=== PATIENT | male | born 1960 | race African-American/Black ===

== ENCOUNTER 2022-02-28 12:02 | Emergency (ER) | payer OTHER ==
[2022-02-28 12:26] VITALS: BP 113/68; PULSE 94; TEMP 98.4; BMI 35.4
== END 2022-02-28 16:45 | disposition left against medical advice (07) ==
LOC: JER 12:02
DX: R00.2 Palpitations (principal); R07.9 Chest pain, unspecified
CPT/HCPCS: 93005; 93010; 99281-25

== ENCOUNTER 2022-07-27 01:25 | Emergency (ER) | payer OTHER | END 2022-07-27 06:40 | disposition home or self-care (01) | LOC: JER 01:25 | DX: H10.31 Unspecified acute conjunctivitis, right eye (principal); S30.812A Abrasion of penis, initial encounter; Y99.9 Unspecified external cause status | CPT/HCPCS: 36415; 87491; 87591; 99284-25 ==

== ENCOUNTER 2022-10-10 15:52 | Emergency (ER) | payer OTHER ==
[2022-10-10 16:15] VITALS: BP 104/68; PULSE 90; RESP 18; TEMP 98.8; BMI 36.5
== END 2022-10-10 16:35 | disposition left against medical advice (07) ==
LOC: JERFT 15:52
DX: Z20.2 Contact with and (suspected) exposure to infections with a predominantly sexual mode of transmission (principal)
CPT/HCPCS: 99281-25

== ENCOUNTER 2022-10-25 10:04 | Emergency (ER) | payer OTHER ==
[2022-10-25 10:25] VITALS: RESP 20; TEMP 99.5; BMI 36.5
[2022-10-25] MEDS ORDERED: SODIUM CHLORIDE 1,000 ML IV STA (11:40)
[2022-10-25] MEDS ORDERED: ACETAMINOPHEN 1000 MG/100 ML BAG IVPB ONE (11:40)
[2022-10-25] MEDS ORDERED: ONDANSETRON 4 MG/2 ML VIAL IVPUSH ONE (11:41)
[2022-10-25] MEDS ORDERED: ONDANSETRON 4 MG/2 ML VIAL ONE (11:46)
[2022-10-25] MEDS ORDERED: ACETAMINOPHEN INJECTION 100 ML IVPB ONE (11:46)
[2022-10-25 12:24] LABS: BASO % 0.5 % (0-2.0); EOS % 0.4 % (0-4.5); HEMATOCRIT 40.2 % (35.4-49); HEMOGLOBIN 13.4 GM/dL (11.7-16.9); LYMPH % 10.5 % (8-40); MCH 29.7 pg (25.7-33.7); MCHC 33.2 g/dl (32.0-35.9); MEAN CELL VOLUME 89.4 fl (80-96); MEAN PLT VOLUME 7.4 fl (7.5-11.1); MONO % 5.3 % (3.8-10.2); NEUT % 83.3 % (42.8-82.8); PLATELET COUNT 255 10^3/uL (134-434); RDW 13.4 % (11.9-15.9); WHITE BLOOD COUNT 5.1 K/mm3 (4.0-10.0)
[2022-10-25 13:06] LABS: CALCIUM 8.5 mg/dL (8.5-10.1)
[2022-10-25 13:07] LABS: ALBUMIN 3.6 g/dl (3.4-5.0); BLOOD UREA NITROGEN 18.1 mg/dL (7-18); MAGNESIUM 1.8 mg/dL (1.8-2.4)
[2022-10-25 13:10] LABS: CREATININE 0.9 mg/dL (0.55-1.3)
[2022-10-25 13:11] LABS: TOT PROT 6.8 g/dl (6.4-8.2)
[2022-10-25 13:12] LABS: BILIRUBIN,TOTAL 0.8 mg/dL (0.2-1)
[2022-10-25 13:50] LABS: EPI CELLS 24 /uL (0-25.1); HYALINE CASTS 7 /uL (0-3.1); URINE APPEARANCE CLOUDY; URINE BILIRUBIN NEGATIVE (NEGATIVE); URINE COLOR YELLOW; URINE GLUCOSE (UA) NEGATIVE (NEGATIVE); URINE KETONE TRACE (NEGATIVE); URINE NITRITE POSITIVE (NEGATIVE); URINE PROTEIN 1+ (NEGATIVE); URINE RBC 10 /uL (0-23.9); URINE WBC 121 /uL (0-25.8)
[2022-10-25 14:00] LABS: URINE BACTERIA MANY PRESENT /uL (0-1359)
[2022-10-25 14:01] LABS: URINE LEUK ESTERASE MODERATE (NEGATIVE)
[2022-10-25] MEDS ORDERED: CEFTRIAXONE 1,000 MG in DEXTROSE 5%-WATER - 50 ML IVPB ONE (14:23)
[2022-10-25] MEDS ORDERED: CEFTRIAXONE 1 GM/50 ML BAG ONE (14:32)
[2022-10-25 17:02] VITALS: BP 146/91; PULSE 83
== END 2022-10-25 17:28 | disposition home or self-care (01) ==
LOC: JER 10:04
PROC: 3E0333Z Introduction of Anti-inflammatory into Peripheral Vein, Percutaneous Approach (ICD-10-PCS; principal; 2022-10-25)
PROC: 3E03329 Introduction of Other Anti-infective into Peripheral Vein, Percutaneous Approach (ICD-10-PCS; 2022-10-25)
PROC: 3E033NZ Introduction of Analgesics, Hypnotics, Sedatives into Peripheral Vein, Percutaneous Approach (ICD-10-PCS; 2022-10-25)
PROC: 3E033GC Introduction of Other Therapeutic Substance into Peripheral Vein, Percutaneous Approach (ICD-10-PCS; 2022-10-25)
PROC: 3E0337Z Introduction of Electrolytic and Water Balance Substance into Peripheral Vein, Percutaneous Approach (ICD-10-PCS; 2022-10-25)
PROC: 3E0233Z Introduction of Anti-inflammatory into Muscle, Percutaneous Approach (ICD-10-PCS; 2022-10-25)
PROC: 3E023GC Introduction of Other Therapeutic Substance into Muscle, Percutaneous Approach (ICD-10-PCS; 2022-10-25)
DX: N39.0 Urinary tract infection, site not specified (principal); R11.10 Vomiting, unspecified; R19.7 Diarrhea, unspecified; R10.9 Unspecified abdominal pain
CPT/HCPCS: 0241U-QW; 36415; 71046-TC-FY; 74176-TC; 80053; 81003; 83690; 83735; 84484; 85025; 87086; 87186; 93005; 93010; 99285-25

== ENCOUNTER 2023-02-27 11:40 | Emergency (ER) | payer OTHER ==
[2023-02-27 12:05] VITALS: BP 128/86; PULSE 96; RESP 18; TEMP 98; BMI 34.0
[2023-02-27] MEDS ORDERED: AMOX TR/POT CLAV 875MG/125MG TABLETS (FP) PO ONE (13:31)
[2023-02-27] MEDS ORDERED: AMOX TR/POT CLAV 875MG/125MG TABLETS (FP) ONE (14:27)
== END 2023-02-27 16:00 | disposition home or self-care (01) ==
LOC: JERFT 11:40
DX: M79.662 Pain in left lower leg (principal); S92.912A Unspecified fracture of left toe(s), initial encounter for closed fracture; S81.812A Laceration without foreign body, left lower leg, initial encounter; S81.811A Laceration without foreign body, right lower leg, initial encounter; R07.81 Pleurodynia; V23.41XA Electric (assisted) bicycle driver injured in collision with car, pick-up truck or van in traffic accident, initial encounter; Y93.55 Activity, bike riding; Y92.219 Unspecified school as the place of occurrence of the external cause
CPT/HCPCS: 71101-TC-LT-FY; 73590-TC-LT-FY; 73610-TC-LT-FY; 73630-TC-LT; 99284-25

== ENCOUNTER 2023-02-28 10:49 | Emergency (ER) | payer OTHER ==
[2023-02-28 10:59] VITALS: BP 99/54; PULSE 95; RESP 18; TEMP 98.7; BMI 34.0
== END 2023-02-28 13:46 | disposition home or self-care (01) ==
LOC: JERFT 10:49
DX: Z76.0 Encounter for issue of repeat prescription (principal)
CPT/HCPCS: 99281-25

== ENCOUNTER 2023-03-04 13:47 | Inpatient (IN) | payer OTHER ==
[2023-03-04 13:56] VITALS: BMI 34.0
[2023-03-04] MEDS ORDERED: ACETAMINOPHEN 1000 MG/100 ML BAG IVPB ONE (15:08)
[2023-03-04 15:45] LABS: BASO % 0.3 % (0-2.0); EOS % 2.3 % (0-4.5); HEMATOCRIT 32.8 % (35.4-49); LYMPH % 23.6 % (8-40); MCH 29.3 pg (25.7-33.7); MCHC 33.5 g/dl (32.0-35.9); MEAN CELL VOLUME 87.3 fl (80-96); MEAN PLT VOLUME 7.6 fl (7.5-11.1); MONO % 6.5 % (3.8-10.2); NEUT % 67.3 % (42.8-82.8); PLATELET COUNT 290 10^3/uL (134-434); RBC 3.75 M/mm3 (4.00-5.60); RDW 13.5 % (11.9-15.9); WHITE BLOOD COUNT 6.5 K/mm3 (4.0-10.0)
[2023-03-04] MEDS ORDERED: ACETAMINOPHEN INJECTION 100 ML IVPB ONE (16:08)
[2023-03-04 16:10] LABS: POTASSIUM 3.7 mmol/L (3.5-5.1)
[2023-03-04 16:13] LABS: BLOOD UREA NITROGEN 17.9 mg/dL (7-18); CALCIUM 8.6 mg/dL (8.5-10.1)
[2023-03-04] MEDS ORDERED: VANCOMYCIN/WATER 2 GM/400 ML PREMIX BAG (RESTRICTED TO ID ONLY) IVPB ONE (16:15)
[2023-03-04 16:16] LABS: CREATININE 0.8 mg/dL (0.55-1.3)
[2023-03-04 16:18] LABS: BILIRUBIN,TOTAL 0.9 mg/dL (0.2-1); TOT PROT 6.3 g/dl (6.4-8.2)
[2023-03-04] MEDS ORDERED: VANCOMYCIN/WATER FOR INJ (PEG) 1,000 MG/200 ML BAG IVPB ONE (16:55)
[2023-03-04] MEDS ORDERED: KETOROLAC TROMETHAMINE 15 MG/ML VIAL IVPUSH PRN (17:33)
[2023-03-04] MEDS ORDERED: ACETAMINOPHEN 325 MG TABLET (FP) PO PRN (17:33)
[2023-03-04] MEDS ORDERED: LACTATED RINGERS SOLUTION 1,000 ML IV SCH (17:45)
[2023-03-04] MEDS ORDERED: ACETAMINOPHEN 325 MG TABLET (FP) ONE ×2 (20:23→23:16)
[2023-03-05] MEDS ORDERED: VANCOMYCIN 1 GM/200 ML PREMIX BAG (RESTRICTED TO ID ONLY) IVPB SCH (05:00)
[2023-03-05] MEDS ORDERED: VANCOMYCIN/WATER FOR INJ (PEG) 1,000 MG/200 ML BAG IVPB SCH (05:00)
[2023-03-05] MEDS ORDERED: PIPERACILLIN/TAZOB 3.375 GM 3.375 GM in DEXTROSE 5%-WATER - 50 ML IVPB ONE (08:02)
[2023-03-05] MEDS ORDERED: oxyCODONE HCL 5 MG TABLET PO PRN ×2 (08:44→08:50)
[2023-03-05] MEDS ORDERED: KETOROLAC TROMETHAMINE 30 MG/1 ML VIAL IVPUSH PRN ×2 (08:45→08:50)
[2023-03-05] MEDS ORDERED: ACETAMINOPHEN 500 MG TABLET (FP) PO PRN (08:51)
[2023-03-05] MEDS: BACITRACIN ZINC 15 GM TUBE TOPICAL OINTMENT TP SCH ×2 (10:27→23:05)
[2023-03-05] MEDS: ENOXAPARIN NA (PORCINE) 40 MG/0.4 ML DISP.SYRIN SQ SCH (10:29)
[2023-03-05 10:45] LABS: INR 1.08 (0.83-1.09); PROTHROMBIN TIME (PATIENT) 12.5 SEC (9.7-13.0)
[2023-03-05 10:47] LABS: ACTIVATED PTT 31.9 SECONDS (25.2-36.5)
[2023-03-05 10:50] LABS: BASO % 0.5 % (0-2.0); EOS % 2.8 % (0-4.5); HEMATOCRIT 30.9 % (35.4-49); HEMOGLOBIN 10.4 GM/dL (11.7-16.9); LYMPH % 33.1 % (8-40); MCH 29.3 pg (25.7-33.7); MCHC 33.6 g/dl (32.0-35.9); MEAN CELL VOLUME 87.3 fl (80-96); MEAN PLT VOLUME 7.5 fl (7.5-11.1); MONO % 5.3 % (3.8-10.2); NEUT % 58.3 % (42.8-82.8); PLATELET COUNT 284 10^3/uL (134-434); RBC 3.54 M/mm3 (4.00-5.60); RDW 13.6 % (11.9-15.9); WHITE BLOOD COUNT 5.8 K/mm3 (4.0-10.0)
[2023-03-05 10:58] LABS: POTASSIUM 3.9 mmol/L (3.5-5.1)
[2023-03-05 11:04] LABS: CALCIUM 8.6 mg/dL (8.5-10.1)
[2023-03-05 11:05] LABS: ALBUMIN 2.8 g/dl (3.4-5.0); BLOOD UREA NITROGEN 13.5 mg/dL (7-18); MAGNESIUM 1.8 mg/dL (1.8-2.4)
[2023-03-05 11:07] LABS: CREATININE 0.8 mg/dL (0.55-1.3); PHOSPHOROUS 2.8 mg/dL (2.5-4.9)
[2023-03-05 11:09] LABS: BILIRUBIN,TOTAL 0.6 mg/dL (0.2-1); TOT PROT 5.9 g/dl (6.4-8.2)
[2023-03-05] MEDS: VANCOMYCIN 1 GM/200 ML PREMIX BAG (RESTRICTED TO ID ONLY) IVPB SCH ×3 (13:17→18:10)
[2023-03-05] MEDS: CEFTRIAXONE 1 GM in DEXTROSE 5%-WATER - 50 ML IVPB SCH (16:48)
[2023-03-05] MEDS: DOCUSATE SODIUM 100 MG CAPSULE (FP) PO SCH (23:07)
[2023-03-06] MEDS: VANCOMYCIN 1 GM/200 ML PREMIX BAG (RESTRICTED TO ID ONLY) IVPB SCH (06:50)
[2023-03-06] MEDS: PIPERACILLIN/TAZOB 3.375 GM 3.375 GM in DEXTROSE 5%-WATER - 50 ML IVPB SCH ×2 (10:30→17:13)
[2023-03-06] MEDS: DOXYCYCLINE HYCLATE 100 MG CAPSULE PO SCH ×2 (10:30→17:13)
[2023-03-06] MEDS: BACITRACIN ZINC 15 GM TUBE TOPICAL OINTMENT TP SCH ×2 (10:30→22:52)
[2023-03-06] MEDS: ENOXAPARIN NA (PORCINE) 40 MG/0.4 ML DISP.SYRIN SQ SCH (10:30)
[2023-03-06] MEDS: CEFTRIAXONE 1 GM in DEXTROSE 5%-WATER - 50 ML IVPB SCH (12:13)
[2023-03-06] MEDS: oxyCODONE HCL 5 MG TABLET PO PRN ×2 (15:31→22:51)
[2023-03-06] MEDS ORDERED: DOXYCYCLINE HYCLATE 100 MG CAPSULE PO SCH (18:00)
[2023-03-06] MEDS: DOCUSATE SODIUM 100 MG CAPSULE (FP) PO SCH (22:48)
[2023-03-07] MEDS: PIPERACILLIN/TAZOB 3.375 GM 3.375 GM in DEXTROSE 5%-WATER - 50 ML IVPB SCH ×2 (02:03→02:10)
[2023-03-07 09:15] LABS: BASO % 0.4 % (0-2.0); EOS % 2.9 % (0-4.5); HEMOGLOBIN 11.7 GM/dL (11.7-16.9); LYMPH % 33.2 % (8-40); MCH 29.8 pg (25.7-33.7); MCHC 34.2 g/dl (32.0-35.9); MEAN CELL VOLUME 87.1 fl (80-96); MEAN PLT VOLUME 7.8 fl (7.5-11.1); MONO % 6.6 % (3.8-10.2); NEUT % 56.9 % (42.8-82.8); PLATELET COUNT 356 10^3/uL (134-434); RBC 3.91 M/mm3 (4.00-5.60); RDW 13.2 % (11.9-15.9); WHITE BLOOD COUNT 7.3 K/mm3 (4.0-10.0)
[2023-03-07] MEDS ORDERED: AMOX TR/POT CLAV 875MG/125MG TABLETS (FP) PO SCH (09:30)
[2023-03-07] MEDS: ENOXAPARIN NA (PORCINE) 40 MG/0.4 ML DISP.SYRIN SQ SCH (09:32)
[2023-03-07] MEDS: BACITRACIN ZINC 15 GM TUBE TOPICAL OINTMENT TP SCH (09:32)
[2023-03-07] MEDS: DOXYCYCLINE HYCLATE 100 MG CAPSULE PO SCH (09:32)
[2023-03-07 09:36] LABS: CALCIUM 9.1 mg/dL (8.5-10.1); POTASSIUM 4.1 mmol/L (3.5-5.1)
[2023-03-07 09:37] LABS: BLOOD UREA NITROGEN 18.6 mg/dL (7-18); MAGNESIUM 2.1 mg/dL (1.8-2.4)
[2023-03-07 09:40] LABS: CREATININE 0.9 mg/dL (0.55-1.3)
[2023-03-07 09:42] LABS: BILIRUBIN,TOTAL 0.5 mg/dL (0.2-1); TOT PROT 6.9 g/dl (6.4-8.2)
[2023-03-07 09:47] LABS: ALBUMIN 3.5 g/dl (3.4-5.0)
[2023-03-07 12:18] VITALS: BP 135/89; PULSE 82; RESP 18; TEMP 98.1
== END 2023-03-07 12:31 | disposition home or self-care (01) | DRG 383 ==
LOC: JER 13:47 → JERBED 17:26 → J8W 03-05 00:46
PROVIDERS: ADMIT Internal Medicine; ATTEND Nurse Practitioner Family
DX: L03.116 Cellulitis of left lower limb (principal); E66.9 Obesity, unspecified; Z68.34 Body mass index [BMI] 34.0-34.9, adult; B35.1 Tinea unguium
CPT/HCPCS: 0241U-QW; 36415; 71045-TC-FY; 73590-TC-LT-FY; 73610-TC-LT-FY; 73630-TC-LT; 80053; 83735; 84100; 84484; 85025; 85610; 85730; 87040; 93005; 93010; 93971-TC; 99285-25

== ENCOUNTER 2023-04-25 18:03 | Inpatient (IN) | payer OTHER ==
[2023-04-25 18:10] VITALS: BMI 34.0
[2023-04-25] MEDS ORDERED: ACETAMINOPHEN 1000 MG/100 ML BAG IVPB ONE (19:39)
[2023-04-25] MEDS ORDERED: PIPERACILLIN/TAZOB 4.5 GM 4.5 GM in DEXTROSE 5%-WATER 100 ML IVPB ONE (19:45)
[2023-04-25] MEDS ORDERED: VANCOMYCIN 1 GM in D5W (PRE-DOCKED) 1,000 MG/250 ML (RESTRICTED TO ID ONLY IVPB ONE (19:45)
[2023-04-25] MEDS ORDERED: ACETAMINOPHEN INJECTION 100 ML IVPB ONE (19:51)
[2023-04-25] MEDS ORDERED: PIPERACILLIN/TAZOB 3.375 GM 3.375 GM/50 ML BAG IVPB ONE (19:51)
[2023-04-25] MEDS ORDERED: VANCOMYCIN/WATER FOR INJ (PEG) 1,000 MG/200 ML BAG IVPB ONE (19:51)
[2023-04-25] MEDS ORDERED: PIPERACILLIN/TAZOB 4.5 GM 4.5 GM/100 ML BAG IVPB ONE (19:52)
[2023-04-25 20:50] LABS: BASO % 0.5 % (0-2.0); EOS % 2.7 % (0-4.5); HEMATOCRIT 30.7 % (35.4-49); HEMOGLOBIN 10.2 GM/dL (11.7-16.9); LYMPH % 38.9 % (8-40); MCH 29.2 pg (25.7-33.7); MCHC 33.1 g/dl (32.0-35.9); MEAN CELL VOLUME 88.2 fl (80-96); MEAN PLT VOLUME 7.8 fl (7.5-11.1); MONO % 7.1 % (3.8-10.2); NEUT % 50.8 % (42.8-82.8); PLATELET COUNT 249 10^3/uL (134-434); RBC 3.48 M/mm3 (4.00-5.60); RDW 13.6 % (11.9-15.9); WHITE BLOOD COUNT 5.6 K/mm3 (4.0-10.0)
[2023-04-25 21:14] LABS: POTASSIUM 3.4 mmol/L (3.5-5.1)
[2023-04-25 21:18] LABS: ALBUMIN 3.4 g/dl (3.4-5.0)
[2023-04-25 21:19] LABS: BLOOD UREA NITROGEN 23.2 mg/dL (7-18)
[2023-04-25 21:21] LABS: CREATININE 1.1 mg/dL (0.55-1.3)
[2023-04-25 21:23] LABS: BILIRUBIN,TOTAL 0.3 mg/dL (0.2-1); TOT PROT 6.3 g/dl (6.4-8.2)
[2023-04-25 21:25] LABS: ERYTHROCYTE SEDIMENTATION RATE 21 mm/hr (0-20)
[2023-04-25] MEDS ORDERED: ALBUTEROL SO4 HFA INHALER IH PRN (23:55)
[2023-04-26] MEDS: PIPERACILLIN/TAZOB 3.375 GM 3.375 GM in DEXTROSE 5%-WATER - 50 ML IVPB SCH ×4 (03:30→22:42)
[2023-04-26] MEDS ORDERED: PIPERACILLIN/TAZOB 3.375 GM 3.375 GM/50 ML BAG IVPB ONE ×4 (03:31→14:50)
[2023-04-26 06:16] LABS: HEMATOCRIT 35.6 % (35.4-49); HEMOGLOBIN 11.7 GM/dL (11.7-16.9); MCH 29.3 pg (25.7-33.7); MCHC 32.9 g/dl (32.0-35.9); MEAN CELL VOLUME 88.9 fl (80-96); MEAN PLT VOLUME 7.7 fl (7.5-11.1); PLATELET COUNT 272 10^3/uL (134-434); RBC 4.01 M/mm3 (4.00-5.60); RDW 13.7 % (11.9-15.9); WHITE BLOOD COUNT 5.4 K/mm3 (4.0-10.0)
[2023-04-26 06:39] LABS: POTASSIUM 3.5 mmol/L (3.5-5.1)
[2023-04-26] MEDS: INSULIN SLIDING SCALE (NOVOLOG) 1 VIAL SQ SCH ×4 (06:39→22:42)
[2023-04-26 06:41] LABS: ALBUMIN 3.7 g/dl (3.4-5.0); BLOOD UREA NITROGEN 18.9 mg/dL (7-18); CALCIUM 9.1 mg/dL (8.5-10.1); MAGNESIUM 2.1 mg/dL (1.8-2.4)
[2023-04-26 06:45] LABS: PHOSPHOROUS 3.4 mg/dL (2.5-4.9)
[2023-04-26 06:46] LABS: BILIRUBIN,TOTAL 0.5 mg/dL (0.2-1); TOT PROT 6.9 g/dl (6.4-8.2)
[2023-04-26] MEDS ORDERED: HYDROCHLOROTHIAZIDE 25 MG TABLET (FP) ONE (09:49)
[2023-04-26] MEDS ORDERED: NICOTINE 7 MG/24 HOURS TOPICAL PATCH TD ONE (09:50)
[2023-04-26] MEDS ORDERED: ENOXAPARIN NA (PORCINE) 60 MG/0.6 ML DISP.SYRIN SQ ONE (09:53)
[2023-04-26] MEDS ORDERED: ENOXAPARIN NA (PORCINE) 40 MG/0.4 ML DISP.SYRIN SQ SCH (10:00)
[2023-04-26] MEDS ORDERED: VANCOMYCIN 1 GM in D5W (PRE-DOCKED) 1,000 MG/250 ML (RESTRICTED TO ID ONLY IVPB SCH (10:00)
[2023-04-26] MEDS: NICOTINE 7 MG/24 HOURS TOPICAL PATCH TD SCH (10:20)
[2023-04-26] MEDS: ENOXAPARIN NA (PORCINE) 120 MG/0.8 ML DISP.SYRIN SQ SCH ×2 (10:20→22:42)
[2023-04-26] MEDS ORDERED: VANCOMYCIN/WATER FOR INJ (PEG) 1,000 MG/200 ML BAG IVPB ONE (10:39)
[2023-04-26] MEDS: HYDROCHLOROTHIAZIDE 25 MG TABLET (FP) PO SCH (10:49)
[2023-04-27] MEDS: PIPERACILLIN/TAZOB 3.375 GM 3.375 GM in DEXTROSE 5%-WATER - 50 ML IVPB SCH ×4 (02:59→21:27)
[2023-04-27 08:42] LABS: BASO % 0.7 % (0-2.0); EOS % 2.8 % (0-4.5); HEMATOCRIT 37.2 % (35.4-49); HEMOGLOBIN 12.3 GM/dL (11.7-16.9); LYMPH % 41.6 % (8-40); MCH 29.2 pg (25.7-33.7); MCHC 33.1 g/dl (32.0-35.9); MEAN CELL VOLUME 88.1 fl (80-96); MONO % 5.9 % (3.8-10.2); PLATELET COUNT 295 10^3/uL (134-434); RBC 4.23 M/mm3 (4.00-5.60); RDW 13.5 % (11.9-15.9)
[2023-04-27] MEDS: INSULIN SLIDING SCALE (NOVOLOG) 1 VIAL SQ SCH ×4 (08:57→22:19)
[2023-04-27 09:00] LABS: POTASSIUM 3.7 mmol/L (3.5-5.1)
[2023-04-27 09:03] LABS: CALCIUM 9.5 mg/dL (8.5-10.1)
[2023-04-27 09:04] LABS: ALBUMIN 3.7 g/dl (3.4-5.0); BLOOD UREA NITROGEN 14.4 mg/dL (7-18)
[2023-04-27 09:07] LABS: CREATININE 0.9 mg/dL (0.55-1.3)
[2023-04-27 09:08] LABS: TOT PROT 7.2 g/dl (6.4-8.2)
[2023-04-27 09:09] LABS: BILIRUBIN,TOTAL 0.8 mg/dL (0.2-1)
[2023-04-27] MEDS: NICOTINE 7 MG/24 HOURS TOPICAL PATCH TD SCH (09:25)
[2023-04-27] MEDS: ENOXAPARIN NA (PORCINE) 120 MG/0.8 ML DISP.SYRIN SQ SCH (09:25)
[2023-04-27] MEDS: HYDROCHLOROTHIAZIDE 25 MG TABLET (FP) PO SCH (09:25)
[2023-04-27] MEDS: ENOXAPARIN NA (PORCINE) 40 MG/0.4 ML DISP.SYRIN SQ SCH (11:29)
[2023-04-27] MEDS: COLLAGENASE CLOSTRIDIUM HIST. 30 GRAMS TUBE TP SCH (14:02)
[2023-04-27] MEDS: AMINO ACIDS/PROTEIN HYDROLYS 30 ML LIQUID.PKT PO SCH (16:59)
[2023-04-27] MEDS ORDERED: ACETAMINOPHEN 1000 MG/100 ML BAG IVPB ONE (22:02)
[2023-04-28] MEDS: PIPERACILLIN/TAZOB 3.375 GM 3.375 GM in DEXTROSE 5%-WATER - 50 ML IVPB SCH ×2 (03:46→09:15)
[2023-04-28 07:47] VITALS: BP 128/80; PULSE 83; RESP 18; TEMP 97.5
[2023-04-28] MEDS: INSULIN SLIDING SCALE (NOVOLOG) 1 VIAL SQ SCH ×2 (08:04→10:48)
[2023-04-28] MEDS: ENOXAPARIN NA (PORCINE) 40 MG/0.4 ML DISP.SYRIN SQ SCH (09:15)
[2023-04-28] MEDS: NICOTINE 7 MG/24 HOURS TOPICAL PATCH TD SCH (09:15)
[2023-04-28] MEDS: HYDROCHLOROTHIAZIDE 25 MG TABLET (FP) PO SCH (09:15)
[2023-04-28] MEDS: AMINO ACIDS/PROTEIN HYDROLYS 30 ML LIQUID.PKT PO SCH (09:15)
[2023-04-28 09:50] LABS: BASO % 0.4 % (0-2.0); EOS % 2.9 % (0-4.5); HEMATOCRIT 35.2 % (35.4-49); HEMOGLOBIN 11.6 GM/dL (11.7-16.9); LYMPH % 37.9 % (8-40); MCH 28.8 pg (25.7-33.7); MCHC 32.9 g/dl (32.0-35.9); MEAN CELL VOLUME 87.5 fl (80-96); MEAN PLT VOLUME 7.9 fl (7.5-11.1); MONO % 6.2 % (3.8-10.2); NEUT % 52.6 % (42.8-82.8); PLATELET COUNT 274 10^3/uL (134-434); RBC 4.02 M/mm3 (4.00-5.60); RDW 13.2 % (11.9-15.9); WHITE BLOOD COUNT 5.8 K/mm3 (4.0-10.0)
[2023-04-28 10:02] LABS: POTASSIUM 3.7 mmol/L (3.5-5.1)
[2023-04-28 10:05] LABS: BLOOD UREA NITROGEN 20.1 mg/dL (7-18); CALCIUM 9.3 mg/dL (8.5-10.1)
[2023-04-28 10:06] LABS: ALBUMIN 3.5 g/dl (3.4-5.0); MAGNESIUM 2.2 mg/dL (1.8-2.4)
[2023-04-28 10:10] LABS: BILIRUBIN,TOTAL 0.3 mg/dL (0.2-1); TOT PROT 6.9 g/dl (6.4-8.2)
[2023-04-28] MEDS: COLLAGENASE CLOSTRIDIUM HIST. 30 GRAMS TUBE TP SCH (10:50)
== END 2023-04-28 13:03 | disposition home or self-care (01) | DRG 383 ==
LOC: JER 18:03 → JERBED 22:38 → J8W 04-26 19:51
PROVIDERS: ADMIT Internal Medicine; ATTEND Nurse Practitioner Family
DX: L03.116 Cellulitis of left lower limb (principal); L97.909 Non-pressure chronic ulcer of unspecified part of unspecified lower leg with unspecified severity; I10 Essential (primary) hypertension; I87.2 Venous insufficiency (chronic) (peripheral); E11.9 Type 2 diabetes mellitus without complications; F17.210 Nicotine dependence, cigarettes, uncomplicated; J45.909 Unspecified asthma, uncomplicated; L03.115 Cellulitis of right lower limb; E78.5 Hyperlipidemia, unspecified; E66.9 Obesity, unspecified; Z68.34 Body mass index [BMI] 34.0-34.9, adult
CPT/HCPCS: 36415; 73590-TC-LT-FY; 73700-TC-RT; 80053; 82962; 83036; 83735; 84100; 85025; 85027; 85651; 86140; 87040; 87070; 87081; 87186; 87205; 93005; 93010; 93970-TC; 99285-25

== ENCOUNTER 2023-07-19 14:03 | Inpatient (IN) | payer OTHER ==
[2023-07-19] MEDS ORDERED: ONDANSETRON 4 MG/2 ML VIAL IVPUSH ONE (15:20)
[2023-07-19] MEDS ORDERED: ONDANSETRON 4 MG/2 ML VIAL ONE (15:27)
[2023-07-19] MEDS ORDERED: FAMOTIDINE 20 MG/50 ML IVPB 20 MG/50 ML MG IVPB ONE ×2 (15:37→15:46)
[2023-07-19] MEDS ORDERED: MAG HYDROX/AL HYDROX/SIMETH 30 ML UNIT-DOSE CUP PO ONE (15:38)
[2023-07-19] MEDS ORDERED: SODIUM CHLORIDE 0.9% 500 ML INFUS.BAG IV ONE (15:42)
[2023-07-19] MEDS ORDERED: MAG HYDROX/AL HYDROX/SIMETH 30 ML UNIT-DOSE CUP ONE (15:45)
[2023-07-19 16:08] LABS: BASO % 1.1 % (0-2.0); EOS % 0.1 % (0-4.5); HEMATOCRIT 33.8 % (35.4-49); HEMOGLOBIN 11.6 GM/dL (11.7-16.9); LYMPH % 27.2 % (8-40); MCH 29.1 pg (25.7-33.7); MCHC 34.4 g/dl (32.0-35.9); MEAN CELL VOLUME 84.7 fl (80-96); MEAN PLT VOLUME 7.6 fl (7.5-11.1); MONO % 7.3 % (3.8-10.2); NEUT % 64.3 % (42.8-82.8); PLATELET COUNT 281 10^3/uL (134-434); RDW 14.1 % (11.9-15.9); WHITE BLOOD COUNT 7.8 K/mm3 (4.0-10.0)
[2023-07-19 16:17] LABS: INR 1.1 (0.83-1.09); PROTHROMBIN TIME (PATIENT) 12.7 SEC (9.7-13.0)
[2023-07-19 16:20] LABS: ACTIVATED PTT 27.1 SECONDS (25.2-36.5)
[2023-07-19 16:28] LABS: POTASSIUM 3.6 mmol/L (3.5-5.1)
[2023-07-19 16:30] LABS: ALBUMIN 3.6 g/dl (3.4-5.0); BLOOD UREA NITROGEN 16.5 mg/dL (7-18); CALCIUM 8.7 mg/dL (8.5-10.1)
[2023-07-19 16:32] LABS: CREATININE 0.9 mg/dL (0.55-1.3)
[2023-07-19 16:34] LABS: BILIRUBIN,TOTAL 0.5 mg/dL (0.2-1); TOT PROT 6.6 g/dl (6.4-8.2)
[2023-07-19 16:37] LABS: N-TERMINAL BNP 1114.1 pg/ml (5-125)
[2023-07-19] MEDS ORDERED: PIPERACILLIN/TAZOB 4.5 GM 4.5 GM in DEXTROSE 5%-WATER 100 ML IVPB ONE (16:39)
[2023-07-19] MEDS ORDERED: PIPERACILLIN/TAZOB 4.5 GM 4.5 GM/100 ML BAG IVPB ONE (16:42)
[2023-07-19] MEDS ORDERED: ACETAMINOPHEN 500 MG TABLET (FP) PO PRN (17:55)
[2023-07-19] MEDS ORDERED: KETOROLAC TROMETHAMINE 15 MG/ML VIAL IVPUSH PRN (17:55)
[2023-07-19] MEDS ORDERED: VANCOMYCIN 1,000 MG in DEXTROSE 5%-WATER - 250 ML IVPB SCH (18:00)
[2023-07-19] MEDS ORDERED: VANCOMYCIN 1 GRAM (PRE-DOCKED) 1,000 MG/250 ML BAG IVPB SCH (18:15)
[2023-07-19 18:37] LABS: URINE APPEARANCE CLEAR; URINE BILIRUBIN NEGATIVE (NEGATIVE); URINE COLOR YELLOW; URINE GLUCOSE (UA) NEGATIVE (NEGATIVE); URINE KETONE NEGATIVE (NEGATIVE); URINE LEUK ESTERASE NEGATIVE (NEGATIVE); URINE NITRITE NEGATIVE (NEGATIVE); URINE PROTEIN NEGATIVE (NEGATIVE); URINE UROBILINOGEN 0.2 mg/dL (0.2-1.0)
[2023-07-19] MEDS: HEPARIN NA (PORCINE) 5,000 UNITS/ML 1ML VIAL SQ SCH (21:49)
[2023-07-19] MEDS: DEXTROSE 5%-LACTATED RINGERS 1,000 ML IV SCH (23:18)
[2023-07-19] MEDS: ONDANSETRON 4 MG/2 ML VIAL IVPUSH PRN (23:18)
[2023-07-19 23:49] VITALS: BMI 31.4
[2023-07-20] MEDS: VANCOMYCIN/WATER FOR INJ (PEG) 1,000 MG/200 ML BAG IVPB SCH ×2 (00:12→12:26)
[2023-07-20] MEDS: ONDANSETRON 4 MG/2 ML VIAL IVPUSH PRN ×2 (04:03→08:37)
[2023-07-20 05:59] VITALS: RESP 18
[2023-07-20] MEDS: HEPARIN NA (PORCINE) 5,000 UNITS/ML 1ML VIAL SQ SCH ×2 (09:27→22:31)
[2023-07-20] MEDS: HYDROCHLOROTHIAZIDE 25 MG TABLET (FP) PO SCH (09:28)
[2023-07-20] MEDS ORDERED: CEFTRIAXONE 2 GM in DEXTROSE 5%-WATER 100 ML IVPB SCH (10:00)
[2023-07-20 11:10] LABS: BASO % 0.3 % (0-2.0); EOS % 0.4 % (0-4.5); HEMATOCRIT 33.2 % (35.4-49); HEMOGLOBIN 11.5 GM/dL (11.7-16.9); LYMPH % 27.7 % (8-40); MCH 29.4 pg (25.7-33.7); MCHC 34.6 g/dl (32.0-35.9); MEAN PLT VOLUME 7.7 fl (7.5-11.1); MONO % 6.8 % (3.8-10.2); NEUT % 64.8 % (42.8-82.8); PLATELET COUNT 263 10^3/uL (134-434); RBC 3.91 M/mm3 (4.00-5.60); RDW 13.9 % (11.9-15.9); WHITE BLOOD COUNT 6.1 K/mm3 (4.0-10.0)
[2023-07-20] MEDS ORDERED: PROCHLORPERAZINE INJECTION 10 MG/2 ML VIAL IVPB PRN (11:33)
[2023-07-20] MEDS ORDERED: MAG HYDROX/AL HYDROX/SIMETH 30 ML UNIT-DOSE CUP PO ONE (11:35)
[2023-07-20] MEDS ORDERED: PANTOPRAZOLE SODIUM 40 MG VIAL IVPUSH ONE (11:35)
[2023-07-20 11:45] LABS: POTASSIUM 3.6 mmol/L (3.5-5.1)
[2023-07-20 11:52] LABS: CALCIUM 8.5 mg/dL (8.5-10.1)
[2023-07-20 11:53] LABS: BLOOD UREA NITROGEN 16.6 mg/dL (7-18)
[2023-07-20 11:56] LABS: CREATININE 0.9 mg/dL (0.55-1.3)
[2023-07-20] MEDS ORDERED: SODIUM CHLORIDE 1,000 ML IV SCH (13:00)
[2023-07-20] MEDS: amLODIPine BESYLATE 5 MG TABLET (FP) PO SCH (16:32)
[2023-07-20] MEDS: PIPERACILLIN/TAZOB 3.375 GM 3.375 GM in DEXTROSE 5%-WATER - 50 ML IVPB SCH (17:17)
[2023-07-20] MEDS: DEXTROSE 5%-LACTATED RINGERS 1,000 ML IV SCH (21:30)
[2023-07-21] MEDS: MAG HYDROX/AL HYDROX/SIMETH 30 ML UNIT-DOSE CUP PO PRN ×2 (02:21→09:46)
[2023-07-21] MEDS: PIPERACILLIN/TAZOB 3.375 GM 3.375 GM in DEXTROSE 5%-WATER - 50 ML IVPB SCH ×3 (02:21→17:09)
[2023-07-21] MEDS: HEPARIN NA (PORCINE) 5,000 UNITS/ML 1ML VIAL SQ SCH ×2 (09:45→22:19)
[2023-07-21] MEDS: amLODIPine BESYLATE 5 MG TABLET (FP) PO SCH (09:45)
[2023-07-21] MEDS: HYDROCHLOROTHIAZIDE 25 MG TABLET (FP) PO SCH (09:45)
[2023-07-21 11:16] LABS: HEMATOCRIT 34.9 % (35.4-49); HEMOGLOBIN 11.8 GM/dL (11.7-16.9); MCHC 33.7 g/dl (32.0-35.9); MEAN CELL VOLUME 85.9 fl (80-96); MEAN PLT VOLUME 7.8 fl (7.5-11.1); PLATELET COUNT 262 10^3/uL (134-434); RBC 4.06 M/mm3 (4.00-5.60); RDW 14.2 % (11.9-15.9)
[2023-07-21 11:41] LABS: POTASSIUM 3.2 mmol/L (3.5-5.1)
[2023-07-21 12:09] LABS: CALCIUM 8.7 mg/dL (8.5-10.1)
[2023-07-21 12:12] LABS: CREATININE 0.9 mg/dL (0.55-1.3)
[2023-07-21] MEDS: METOCLOPRAMIDE HCL 10 MG TABLET (FP) PO SCH ×2 (13:47→17:09)
[2023-07-21] MEDS: LACTOBACILLUS ACIDOPHILUS 1 TABLET PO SCH (13:47)
[2023-07-21] MEDS: DOCUSATE SODIUM 100 MG CAPSULE (FP) PO SCH ×2 (13:47→22:18)
[2023-07-21] MEDS ORDERED: POTASSIUM CHLORIDE TABS 20 MEQ TABLET.ER (FP) PO ONE (17:11)
[2023-07-21] MEDS: DEXTROSE 5%-LACTATED RINGERS 1,000 ML IV SCH (20:00)
[2023-07-21] MEDS ORDERED: SENNOSIDES 8.6MG TABLET (FP) PO SCH (22:00)
[2023-07-22] MEDS: PIPERACILLIN/TAZOB 3.375 GM 3.375 GM in DEXTROSE 5%-WATER - 50 ML IVPB SCH ×2 (02:29→02:34)
[2023-07-22] MEDS: METOCLOPRAMIDE HCL 10 MG TABLET (FP) PO SCH ×2 (06:59→11:02)
[2023-07-22 07:21] VITALS: BP 155/90; PULSE 65; TEMP 99.2
[2023-07-22] MEDS: DOCUSATE SODIUM 100 MG CAPSULE (FP) PO SCH (09:39)
[2023-07-22] MEDS: HEPARIN NA (PORCINE) 5,000 UNITS/ML 1ML VIAL SQ SCH ×2 (09:39→09:41)
[2023-07-22] MEDS: LACTOBACILLUS ACIDOPHILUS 1 TABLET PO SCH (09:39)
[2023-07-22] MEDS: HYDROCHLOROTHIAZIDE 25 MG TABLET (FP) PO SCH (09:39)
[2023-07-22] MEDS: amLODIPine BESYLATE 5 MG TABLET (FP) PO SCH (09:39)
[2023-07-22 09:41] LABS: BASO % 0.9 % (0-2.0); EOS % 1.6 % (0-4.5); HEMATOCRIT 38.4 % (35.4-49); HEMOGLOBIN 12.8 GM/dL (11.7-16.9); LYMPH % 34.2 % (8-40); MCH 28.9 pg (25.7-33.7); MCHC 33.4 g/dl (32.0-35.9); MEAN CELL VOLUME 86.5 fl (80-96); MEAN PLT VOLUME 7.4 fl (7.5-11.1); MONO % 6.6 % (3.8-10.2); NEUT % 56.7 % (42.8-82.8); PLATELET COUNT 286 10^3/uL (134-434); RBC 4.45 M/mm3 (4.00-5.60); RDW 13.6 % (11.9-15.9); WHITE BLOOD COUNT 6.4 K/mm3 (4.0-10.0)
[2023-07-22 09:53] LABS: POTASSIUM 3.3 mmol/L (3.5-5.1)
[2023-07-22] MEDS ORDERED: levoFLOXacin 750 MG TABLET PO SCH (10:00)
[2023-07-22 10:15] LABS: ALBUMIN 3.7 g/dl (3.4-5.0); BLOOD UREA NITROGEN 9.7 mg/dL (7-18)
[2023-07-22 10:18] LABS: CREATININE 0.9 mg/dL (0.55-1.3)
[2023-07-22 10:20] LABS: BILIRUBIN,TOTAL 0.5 mg/dL (0.2-1); TOT PROT 7.2 g/dl (6.4-8.2)
[2023-07-22] MEDS ORDERED: POTASSIUM CHLORIDE ORAL LIQUID 20 MEQ/15 ML PO ONE (11:30)
== END 2023-07-22 11:10 | disposition home or self-care (01) | DRG 383 ==
LOC: JER 14:03 → JERBED 16:45 → J5S 18:15
PROVIDERS: ADMIT Internal Medicine; ATTEND Internal Medicine
DX: L03.116 Cellulitis of left lower limb (principal); E11.622 Type 2 diabetes mellitus with other skin ulcer; L97.828 Non-pressure chronic ulcer of other part of left lower leg with other specified severity; I10 Essential (primary) hypertension; E78.5 Hyperlipidemia, unspecified; R11.2 Nausea with vomiting, unspecified; K52.9 Noninfective gastroenteritis and colitis, unspecified
CPT/HCPCS: 0241U-QW; 36415; 73590-TC-LT-FY; 73630-TC-LT; 80048; 80053; 80061; 81003; 83605; 83690; 83880; 84484; 85025; 85027; 85610; 85651; 85730; 86140; 86850; 86900; 86901; 87040; 87070; 87186; 87205; 93005; 93010; 93970-TC; 97116-GP; 97162-GP; 99285-25; J0875; J1644; J3370

== ENCOUNTER 2023-11-12 21:13 | Emergency (ER) | payer OTHER ==
[2023-11-12 21:21] VITALS: BMI 31.6
[2023-11-12] MEDS: ACETAMINOPHEN 1000 MG/100 ML BAG IVPB ONE ×2 (22:45→23:58)
[2023-11-12 23:20] LABS: EOS % 2.9 % (0-4.5); HEMATOCRIT 35.9 % (35.4-49); HEMOGLOBIN 12.1 GM/dL (11.7-16.9); LYMPH % 36.9 % (8-40); MCH 29.5 pg (25.7-33.7); MCHC 33.7 g/dl (32.0-35.9); MEAN CELL VOLUME 87.5 fl (80-96); MEAN PLT VOLUME 7.1 fl (7.5-11.1); MONO % 5.3 % (3.8-10.2); NEUT % 53.9 % (42.8-82.8); PLATELET COUNT 233 10^3/uL (134-434); RDW 14.7 % (11.9-15.9); WHITE BLOOD COUNT 5.3 K/mm3 (4.0-10.0)
[2023-11-12 23:32] LABS: CHLORIDE 111 mmol/L (98-107); POTASSIUM 3.8 mmol/L (3.5-5.1); SODIUM 143 mmol/L (136-145)
[2023-11-12 23:34] LABS: ALBUMIN 3.5 g/dl (3.4-5.0)
[2023-11-12 23:35] LABS: ANION GAP 4 mmol/L (4-13); BLOOD UREA NITROGEN 25.9 mg/dL (7-18); CO2 28 mmol/L (21-32); GLUCOSE,RANDOM 123 mg/dL (74-106)
[2023-11-12 23:37] LABS: CREATININE 1.4 mg/dL (0.55-1.3); SGOT/AST 15 U/L (15-37)
[2023-11-12 23:38] LABS: SGPT/ALT 18 U/L (13-61)
[2023-11-12 23:39] LABS: BILIRUBIN,TOTAL 0.3 mg/dL (0.2-1); TOT PROT 6.6 g/dl (6.4-8.2)
[2023-11-12 23:40] LABS: ALK PHOS 102 U/L (45-117)
[2023-11-12] MEDS ORDERED: ACETAMINOPHEN INJECTION 100 ML IVPB ONE (23:59)
[2023-11-13 00:17] VITALS: BP 91/68; PULSE 71; RESP 19; TEMP 97.7
== END 2023-11-13 01:50 | disposition home or self-care (01) ==
LOC: JER 21:13
DX: M25.572 Pain in left ankle and joints of left foot (principal); M54.9 Dorsalgia, unspecified; G89.29 Other chronic pain
CPT/HCPCS: 36415; 80053; 85025; 85651; 86140; 99283-25

== ENCOUNTER 2024-02-18 11:55 | Emergency (ER) | payer OTHER ==
[2024-02-18 12:03] VITALS: BP 132/73; PULSE 77; RESP 18; TEMP 98.2; BMI 32.8
[2024-02-18] MEDS ORDERED: ACETAMINOPHEN INJECTION 100 ML IVPB ONE (12:57)
[2024-02-18] MEDS: ACETAMINOPHEN 1000 MG/100 ML BAG IVPB ONE (13:10)
[2024-02-18 13:17] LABS: BASO % 0.4 % (0-2.0); EOS % 3.5 % (0-4.5); HEMATOCRIT 32.6 % (35.4-49); HEMOGLOBIN 10.9 GM/dL (11.7-16.9); MCH 29.6 pg (25.7-33.7); MCHC 33.4 g/dl (32.0-35.9); MEAN CELL VOLUME 88.4 fl (80-96); MEAN PLT VOLUME 7.4 fl (7.5-11.1); MONO % 6.5 % (3.8-10.2); NEUT % 56.6 % (42.8-82.8); PLATELET COUNT 221 10^3/uL (134-434); RBC 3.69 M/mm3 (4.00-5.60); RDW 14.5 % (11.9-15.9)
[2024-02-18 13:26] LABS: INR 0.92 (0.83-1.09); PROTHROMBIN TIME (PATIENT) 10.4 SEC (9.7-13.0)
[2024-02-18 13:38] LABS: POTASSIUM 3.7 mmol/L (3.5-5.1)
[2024-02-18 13:43] LABS: ALBUMIN 3.2 g/dl (3.4-5.0); CALCIUM 8.6 mg/dL (8.5-10.1); MAGNESIUM 2.1 mg/dL (1.8-2.4)
[2024-02-18 13:44] LABS: BLOOD UREA NITROGEN 21.6 mg/dL (7-18)
[2024-02-18 13:47] LABS: CREATININE 1.1 mg/dL (0.55-1.3)
[2024-02-18 13:48] LABS: BILIRUBIN,TOTAL 0.4 mg/dL (0.2-1); TOT PROT 5.8 g/dl (6.4-8.2)
== END 2024-02-18 15:59 | disposition left against medical advice (07) ==
LOC: JER 11:55
PROC: 3E033NZ Introduction of Analgesics, Hypnotics, Sedatives into Peripheral Vein, Percutaneous Approach (ICD-10-PCS; principal; 2024-02-18)
DX: R55 Syncope and collapse (principal); R07.89 Other chest pain; R06.02 Shortness of breath; R42 Dizziness and giddiness; R51.9 Headache, unspecified
CPT/HCPCS: 36415; 70450-TC; 71046-TC-FY; 80053; 82550; 83735; 84484; 85025; 85610; 85730; 93005; 93010; 99285-25; J0131

== ENCOUNTER 2024-04-28 15:56 | Emergency (ER) | payer OTHER ==
[2024-04-28 16:02] VITALS: BP 163/90; PULSE 80; RESP 18; TEMP 98.8; BMI 33.5
[2024-04-28] MEDS ORDERED: ALBUTEROL SO4 2.5/IPRATROPIUM 0.5 INH SOL 3 ML VIAL.NEB. NEB ONE (16:15)
[2024-04-28] MEDS: ALBUTEROL SO4 2.5/IPRATROPIUM 0.5 INH SOL 3 ML VIAL.NEB. NEB ONE (16:25)
[2024-04-28] MEDS ORDERED: ACETAMINOPHEN INJECTION 100 ML IVPB ONE (16:41)
[2024-04-28] MEDS ORDERED: MAG HYDROX/AL HYDROX/SIMETH 30 ML UNIT-DOSE CUP ONE (16:42)
[2024-04-28] MEDS ORDERED: ONDANSETRON 4 MG/2 ML VIAL ONE (16:42)
[2024-04-28] MEDS ORDERED: FAMOTIDINE 20 MG/50 ML IVPB 20 MG/50 ML MG IVPB ONE (16:42)
[2024-04-28] MEDS: ONDANSETRON 4 MG/2 ML VIAL IVPUSH ONE (17:54)
[2024-04-28] MEDS: ACETAMINOPHEN 1000 MG/100 ML BAG IVPB ONE (17:57)
[2024-04-28] MEDS: FAMOTIDINE 20 MG/50 ML IVPB 20 MG/50 ML MG IVPB ONE (17:57)
[2024-04-28 18:02] LABS: BASO % 0.4 % (0-2.0); EOS % 0.1 % (0-4.5); HEMATOCRIT 34.7 % (35.4-49); HEMOGLOBIN 11.7 GM/dL (11.7-16.9); LYMPH % 9.8 % (8-40); MCH 30.5 pg (25.7-33.7); MCHC 33.9 g/dl (32.0-35.9); MEAN PLT VOLUME 7.7 fl (7.5-11.1); MONO % 4.1 % (3.8-10.2); NEUT % 85.6 % (42.8-82.8); PLATELET COUNT 210 10^3/uL (134-434); RBC 3.85 M/mm3 (4.00-5.60); RDW 13.5 % (11.9-15.9); WHITE BLOOD COUNT 10.2 K/mm3 (4.0-10.0)
[2024-04-28] MEDS: MAG HYDROX/AL HYDROX/SIMETH 30 ML UNIT-DOSE CUP PO ONE (18:15)
[2024-04-28 18:23] LABS: CALCIUM 9.2 mg/dL (8.5-10.1)
[2024-04-28 18:24] LABS: MAGNESIUM 2.1 mg/dL (1.8-2.4)
[2024-04-28 18:27] LABS: PHOSPHOROUS 3.1 mg/dL (2.5-4.9)
[2024-04-28 18:28] LABS: BILIRUBIN,TOTAL 0.5 mg/dL (0.2-1); TOT PROT 6.9 g/dl (6.4-8.2)
[2024-04-28] MEDS ORDERED: ONDANSETRON *ODT* 4 MG TABLET ONE (20:03)
[2024-04-28] MEDS: ONDANSETRON *ODT* 4 MG TABLET SL ONE (20:05)
== END 2024-04-28 20:13 | disposition home or self-care (01) ==
LOC: JER 15:56
PROC: 3E033GC Introduction of Other Therapeutic Substance into Peripheral Vein, Percutaneous Approach (ICD-10-PCS; principal; 2024-04-28)
PROC: 3E033GC Introduction of Other Therapeutic Substance into Peripheral Vein, Percutaneous Approach (ICD-10-PCS; 2024-04-28)
PROC: 3E033NZ Introduction of Analgesics, Hypnotics, Sedatives into Peripheral Vein, Percutaneous Approach (ICD-10-PCS; 2024-04-28)
PROC: 3E0F7GC Introduction of Other Therapeutic Substance into Respiratory Tract, Via Natural or Artificial Opening (ICD-10-PCS; 2024-04-28)
DX: R10.13 Epigastric pain (principal); R11.10 Vomiting, unspecified; R06.2 Wheezing
CPT/HCPCS: 36415; 74176-TC; 80053; 82962; 83690; 83735; 84100; 84484; 85025; 99284-25; J0131; Q0162

== ENCOUNTER 2024-04-29 20:57 | Emergency (ER) | payer OTHER ==
[2024-04-29 21:03] VITALS: BP 158/88; PULSE 77; RESP 20; TEMP 97.5; BMI 30.4
[2024-04-29] MEDS ORDERED: ONDANSETRON 4 MG/2 ML VIAL ONE (22:11)
[2024-04-29] MEDS ORDERED: HALOPERIDOL LACTATE 5 MG/ML ONE (22:27)
[2024-04-29] MEDS: HALOPERIDOL LACTATE 5 MG/ML IM ONE (23:00)
[2024-04-29] MEDS: ONDANSETRON 4 MG/2 ML VIAL IVPUSH ONE (23:00)
[2024-04-29 23:12] LABS: BASO % 0.9 % (0-2.0); HEMATOCRIT 37.3 % (35.4-49); HEMOGLOBIN 12.2 GM/dL (11.7-16.9); LYMPH % 16.4 % (8-40); MCH 29.7 pg (25.7-33.7); MCHC 32.8 g/dl (32.0-35.9); MEAN CELL VOLUME 90.7 fl (80-96); MEAN PLT VOLUME 7.5 fl (7.5-11.1); MONO % 4.3 % (3.8-10.2); NEUT % 78.4 % (42.8-82.8); PLATELET COUNT 221 10^3/uL (134-434); RBC 4.11 M/mm3 (4.00-5.60); RDW 13.7 % (11.9-15.9); WHITE BLOOD COUNT 8.6 K/mm3 (4.0-10.0)
[2024-04-29 23:29] LABS: POTASSIUM 3.7 mmol/L (3.5-5.1)
[2024-04-29 23:32] LABS: BLOOD UREA NITROGEN 23.3 mg/dL (7-18)
[2024-04-29 23:35] LABS: CREATININE 0.9 mg/dL (0.55-1.3)
[2024-04-29 23:37] LABS: BILIRUBIN,TOTAL 0.5 mg/dL (0.2-1); TOT PROT 7.7 g/dl (6.4-8.2)
== END 2024-04-30 01:25 | disposition home or self-care (01) ==
LOC: JER 20:57
PROC: 3E023GC Introduction of Other Therapeutic Substance into Muscle, Percutaneous Approach (ICD-10-PCS; principal; 2024-04-29)
DX: R10.12 Left upper quadrant pain (principal); R11.2 Nausea with vomiting, unspecified
CPT/HCPCS: 36415; 71046-TC-FY; 76705-TC; 80053; 82550; 82553; 83690; 84484; 85025; 93005; 93010; 96372; 99285-25

== ENCOUNTER 2024-08-12 23:25 | Emergency (ER) | payer OTHER ==
[2024-08-12 23:41] VITALS: TEMP 98.4; BMI 32.8
[2024-08-13] MEDS ORDERED: ALBUTEROL SO4 2.5/IPRATROPIUM 0.5 INH SOL 3 ML VIAL.NEB. NEB ONE (00:18)
[2024-08-13] MEDS ORDERED: predniSONE 20 MG TABLET (UD) ONE (00:18)
[2024-08-13] MEDS: ALBUTEROL SO4 2.5/IPRATROPIUM 0.5 INH SOL 3 ML VIAL.NEB. NEB ONE (00:37)
[2024-08-13] MEDS: predniSONE 20 MG TABLET (UD) PO ONE (00:37)
[2024-08-13 01:17] LABS: BASO % 0.4 % (0-2.0); EOS % 3.6 % (0-4.5); HEMATOCRIT 33.5 % (35.4-49); HEMOGLOBIN 11.1 GM/dL (11.7-16.9); LYMPH % 33.1 % (8-40); MCH 29.1 pg (25.7-33.7); MCHC 33.1 g/dl (32.0-35.9); MEAN CELL VOLUME 87.8 fl (80-96); MEAN PLT VOLUME 7.6 fl (7.5-11.1); MONO % 7.5 % (3.8-10.2); NEUT % 55.4 % (42.8-82.8); PLATELET COUNT 235 10^3/uL (134-434); RBC 3.82 M/mm3 (4.00-5.60); RDW 14.1 % (11.9-15.9); WHITE BLOOD COUNT 5.6 K/mm3 (4.0-10.0)
[2024-08-13 01:43] LABS: INR 0.97 (0.83-1.09)
[2024-08-13 01:53] LABS: POTASSIUM 3.5 mmol/L (3.5-5.1)
[2024-08-13 01:56] LABS: ALBUMIN 3.4 g/dl (3.4-5.0); BLOOD UREA NITROGEN 21.7 mg/dL (7-18); CALCIUM 8.3 mg/dL (8.5-10.1)
[2024-08-13 01:59] LABS: CREATININE 1.2 mg/dL (0.55-1.3)
[2024-08-13 02:00] LABS: BILIRUBIN,TOTAL 0.3 mg/dL (0.2-1); TOT PROT 6.2 g/dl (6.4-8.2)
[2024-08-13 02:04] LABS: N-TERMINAL BNP 103.2 pg/ml (5-125)
[2024-08-13 05:12] VITALS: BP 126/90; PULSE 71; RESP 19
[2024-08-13 13:12] LABS: HIV INTERPRETATION NEGATIVE (NEGATIVE)
== END 2024-08-13 05:19 | disposition home or self-care (01) ==
LOC: JER 23:25
PROC: 3E0F7GC Introduction of Other Therapeutic Substance into Respiratory Tract, Via Natural or Artificial Opening (ICD-10-PCS; principal; 2024-08-13)
DX: J45.909 Unspecified asthma, uncomplicated (principal); Z20.822 Contact with and (suspected) exposure to COVID-19
CPT/HCPCS: 0241U-QW; 36415; 71046-TC-FY; 80053; 83880; 84484; 85025; 85610; 86803; 86850; 86900; 86901; 87389; 93005; 93010; 94640; 99285-25

== ENCOUNTER 2024-09-30 12:33 | Emergency (ER) | payer OTHER ==
[2024-09-30 13:04] VITALS: BP 112/71; PULSE 83; RESP 18; TEMP 97.7; BMI 34.3
[2024-09-30] MEDS ORDERED: DIPHTH,PERTUSS(ACELL),TET 0.5 ML DISP.SYRIN IM ONE (14:00)
[2024-09-30] MEDS ORDERED: KETOROLAC TROMETHAMINE 60 MG/2 ML VIAL ONE (14:02)
[2024-09-30] MEDS ORDERED: oxyCODONE HCL 5 MG TABLET ONE (14:02)
[2024-09-30] MEDS: oxyCODONE HCL 5 MG TABLET PO ONE (14:08)
[2024-09-30] MEDS: KETOROLAC TROMETHAMINE 30 MG/1 ML VIAL IM ONE (14:09)
[2024-09-30] MEDS: DIPHTH,PERTUSS(ACELL),TET 0.5 ML DISP.SYRIN IM ONE (14:09)
== END 2024-09-30 14:34 | disposition home or self-care (01) ==
LOC: JER 12:33
PROC: 3E0133Z Introduction of Anti-inflammatory into Subcutaneous Tissue, Percutaneous Approach (ICD-10-PCS; principal; 2024-09-30)
PROC: 3E0234Z Introduction of Serum, Toxoid and Vaccine into Muscle, Percutaneous Approach (ICD-10-PCS; 2024-09-30)
DX: S51.012A Laceration without foreign body of left elbow, initial encounter (principal); M79.661 Pain in right lower leg; M79.662 Pain in left lower leg; W01.0XXA Fall on same level from slipping, tripping and stumbling without subsequent striking against object, initial encounter; Y93.01 Activity, walking, marching and hiking; Z23 Encounter for immunization
CPT/HCPCS: 90471; 90715; 96372; 99284-25

== ENCOUNTER 2024-12-10 10:43 | Emergency (ER) | payer OTHER ==
[2024-12-10 10:51] VITALS: RESP 18; TEMP 98.4; BMI 32.8
[2024-12-10 12:08] LABS: INR 1.04 (0.83-1.09); PROTHROMBIN TIME (PATIENT) 11.3 SEC (9.7-13.0)
[2024-12-10 12:20] LABS: POTASSIUM 4.1 mmol/L (3.5-5.1)
[2024-12-10 12:21] LABS: CALCIUM 8.4 mg/dL (8.5-10.1)
[2024-12-10 12:22] LABS: ALBUMIN 3.4 g/dl (3.4-5.0); BASO % 0.8 % (0-2.0); BLOOD UREA NITROGEN 20.3 mg/dL (7-18); EOS % 3.1 % (0-4.5); HEMATOCRIT 35.2 % (35.4-49); HEMOGLOBIN 11.5 GM/dL (11.7-16.9); LYMPH % 32.6 % (8-40); MCH 28.6 pg (25.7-33.7); MCHC 32.8 g/dl (32.0-35.9); MEAN CELL VOLUME 87.2 fl (80-96); MEAN PLT VOLUME 7.9 fl (7.5-11.1); MONO % 7.4 % (3.8-10.2); NEUT % 56.1 % (42.8-82.8); PLATELET COUNT 234 10^3/uL (134-434); RBC 4.04 M/mm3 (4.00-5.60); WHITE BLOOD COUNT 4.5 K/mm3 (4.0-10.0)
[2024-12-10 12:26] LABS: BILIRUBIN,TOTAL 0.4 mg/dL (0.2-1); TOT PROT 6.3 g/dl (6.4-8.2)
[2024-12-10] MEDS ORDERED: oxyCODONE HCL 5 MG TABLET ONE ×2 (13:59→14:53)
[2024-12-10] MEDS: oxyCODONE HCL 5 MG TABLET PO ONE (14:01)
[2024-12-10 15:18] VITALS: BP 131/83; PULSE 70
[2024-12-10 15:41] LABS: HIV INTERPRETATION NEGATIVE (NEGATIVE)
[2024-12-10 15:55] LABS: BASO % 0.4 % (0-2.0); EOS % 3.8 % (0-4.5); HEMATOCRIT 33.2 % (35.4-49); HEMOGLOBIN 11.1 GM/dL (11.7-16.9); LYMPH % 37.3 % (8-40); MCH 28.9 pg (25.7-33.7); MCHC 33.6 g/dl (32.0-35.9); MEAN CELL VOLUME 86.2 fl (80-96); MEAN PLT VOLUME 7.9 fl (7.5-11.1); MONO % 8.3 % (3.8-10.2); NEUT % 50.2 % (42.8-82.8); PLATELET COUNT 225 10^3/uL (134-434); RBC 3.85 M/mm3 (4.00-5.60); RDW 14.2 % (11.9-15.9); WHITE BLOOD COUNT 4.5 K/mm3 (4.0-10.0)
== END 2024-12-10 16:34 | disposition home or self-care (01) ==
LOC: JER 10:43
DX: M54.50 Low back pain, unspecified (principal); K62.5 Hemorrhage of anus and rectum; R60.0 Localized edema
CPT/HCPCS: 36415; 80053; 82272; 85025; 85610; 86803; 87389; 99283-25

== ENCOUNTER 2025-03-24 12:40 | Emergency (ER) | payer OTHER ==
[2025-03-24 12:48] VITALS: BMI 33.5
[2025-03-24] MEDS ORDERED: ALBUTEROL SO4 2.5/IPRATROPIUM 0.5 INH SOL 3 ML VIAL.NEB. NEB ONE (13:57)
[2025-03-24] MEDS: ALBUTEROL SO4 2.5/IPRATROPIUM 0.5 INH SOL 3 ML VIAL.NEB. NEB ONE (14:00)
[2025-03-24 14:19] LABS: ABSOLUTE IMMATURE GRANULOCYTES 0.01 x10^3/uL (0.0-0.031); BASOPHILS # 0.02 x10^3/uL (0.01-0.08); EOSINOPHIL % 1.9 % (0.8-7.0); EOSINOPHILS # 0.08 x10^3/uL (0.04-0.54); HEMATOCRIT 35.7 % (40.1-51.0); HEMOGLOBIN 11.7 g/dL (13.7-17.5); MCHC 32.8 g/dl (32.3-36.5); MEAN CELL VOLUME 87.3 fl (79.0-92.2); MEAN PLT VOLUME 8.9 fl (9.4-12.4); MONOCYTE # 0.46 x10^3/uL (0.30-0.82); PLATELET COUNT 214 x10^3/uL (163-337); RDW 14.9 % (12.2-16.4)
[2025-03-24 14:39] LABS: POTASSIUM 3.8 mmol/L (3.5-5.1)
[2025-03-24 14:41] LABS: ALBUMIN 3.3 g/dl (3.4-5.0); CALCIUM 8.9 mg/dL (8.5-10.1)
[2025-03-24 14:44] LABS: CREATININE 0.9 mg/dL (0.55-1.3)
[2025-03-24 14:46] LABS: BILIRUBIN,TOTAL 0.6 mg/dL (0.2-1); TOT PROT 6.5 g/dl (6.4-8.2)
[2025-03-24 14:49] LABS: N-TERMINAL BNP 178.8 pg/ml (5-125)
[2025-03-24 15:06] VITALS: BP 131/88; PULSE 76; RESP 19; TEMP 99.1
[2025-03-24 15:35] LABS: HCV DIAGNOSTIC IN-HOUSE W/RFLX NON-REACTIVE (NONREACTIVE); HIV INTERPRETATION NEGATIVE (NEGATIVE)
[2025-03-24] MEDS ORDERED: CEFTRIAXONE 1 GM in DEXTROSE 5%-WATER - 100 ML IVPB ONE (15:56)
[2025-03-24] MEDS ORDERED: AZITHROMYCIN IVPB 500 MG in DEXTROSE 5%-WATER - 250 ML IVPB ONE (15:56)
[2025-03-24] MEDS ORDERED: KETOROLAC TROMETHAMINE 15 MG/ML VIAL ONE (17:12)
[2025-03-24] MEDS ORDERED: AZITHROMYCIN 250 MG TABLET ONE (17:12)
[2025-03-24] MEDS ORDERED: ACETAMINOPHEN 325 MG TABLET (FP) ONE (17:12)
[2025-03-24 17:27] LABS: URINE APPEARANCE CLEAR; URINE BILIRUBIN NEGATIVE (NEGATIVE); URINE COLOR YELLOW; URINE GLUCOSE (UA) NEGATIVE (NEGATIVE); URINE KETONE NEGATIVE (NEGATIVE); URINE LEUK ESTERASE NEGATIVE (NEGATIVE); URINE NITRITE NEGATIVE (NEGATIVE); URINE PROTEIN NEGATIVE (NEGATIVE); URINE UROBILINOGEN 0.2 mg/dL (0.2-1.0)
[2025-03-24] MEDS: AZITHROMYCIN 250 MG TABLET PO ONE (17:32)
[2025-03-24] MEDS: KETOROLAC TROMETHAMINE 15 MG/ML VIAL IVPUSH ONE (17:32)
[2025-03-24] MEDS: ACETAMINOPHEN 500 MG TABLET (FP) PO ONE (17:32)
== END 2025-03-24 18:57 | disposition home or self-care (01) ==
LOC: JER 12:40
PROC: 3E0233Z Introduction of Anti-inflammatory into Muscle, Percutaneous Approach (ICD-10-PCS; principal; 2025-03-24)
PROC: 3E0F7GC Introduction of Other Therapeutic Substance into Respiratory Tract, Via Natural or Artificial Opening (ICD-10-PCS; 2025-03-24)
DX: J18.9 Pneumonia, unspecified organism (principal); R10.30 Lower abdominal pain, unspecified; R31.9 Hematuria, unspecified; R30.0 Dysuria; R06.02 Shortness of breath; R30.9 Painful micturition, unspecified; M79.661 Pain in right lower leg; M79.662 Pain in left lower leg; M79.89 Other specified soft tissue disorders
CPT/HCPCS: 36415; 71045-TC-FY; 80053; 81003; 83690; 83880; 84484; 85025; 86803; 87086; 87389; 87633; 93005; 93010; 93308; 94640; 96374; 99285-25

== ENCOUNTER 2025-05-13 12:34 | Emergency (ER) | payer OTHER ==
[2025-05-13 13:15] VITALS: BP 134/78; PULSE 72; RESP 20; TEMP 98.9; BMI 34.0
[2025-05-13] MEDS ORDERED: FAMOTIDINE 20 MG TABLET ONE (14:43)
[2025-05-13] MEDS ORDERED: ACETAMINOPHEN 325 MG TABLET (FP) ONE (14:43)
[2025-05-13] MEDS ORDERED: ONDANSETRON *ODT* 4 MG TABLET ONE (14:43)
[2025-05-13] MEDS: FAMOTIDINE 20 MG TABLET PO ONE (14:49)
[2025-05-13] MEDS: ACETAMINOPHEN 500 MG TABLET (FP) PO ONE (14:49)
[2025-05-13] MEDS: ONDANSETRON *ODT* 4 MG TABLET SL ONE (14:50)
[2025-05-13] MEDS ORDERED: TRIMETHOBENZAMIDE HCL 200MG/2ML INJ IM ONE (15:33)
[2025-05-13] MEDS: TRIMETHOBENZAMIDE HCL 200MG/2ML INJ IM ONE (15:37)
[2025-05-13 15:54] LABS: ABSOLUTE IMMATURE GRANULOCYTES 0.04 x10^3/uL (0.0-0.031); BASOPHILS # 0.02 x10^3/uL (0.01-0.08); EOSINOPHIL % 0.7 % (0.8-7.0); EOSINOPHILS # 0.07 x10^3/uL (0.04-0.54); MCHC 32.3 g/dl (32.3-36.5); MEAN CELL VOLUME 89.9 fl (79.0-92.2); MEAN PLT VOLUME 9.0 fl (9.4-12.4); MONOCYTE # 0.47 x10^3/uL (0.30-0.82); MONOCYTE % 4.5 % (5.3-12.2); RDW 14.1 % (12.2-16.4)
[2025-05-13 16:17] LABS: CO2 28.0 mmol/L (21-32); GLUCOSE,RANDOM 115.0 mg/dL (74-106)
[2025-05-13 16:20] LABS: CREATININE 1.0 mg/dL (0.55-1.3); SGOT/AST 20.0 U/L (15-37); SGPT/ALT 29.0 U/L (13-61)
[2025-05-13] MEDS: morphine CARPU-JECT 4 MG/1 ML DISP.SYRIN IVPUSH ONE (16:21)
[2025-05-13 16:22] LABS: TOT PROT 6.7 g/dl (6.4-8.2)
[2025-05-13 16:23] LABS: ALK PHOS 136.0 U/L (45-117)
[2025-05-13] MEDS: ACETAMINOPHEN 1000 MG/100 ML BAG IVPB ONE (17:20)
[2025-05-13] MEDS: FAMOTIDINE 20 MG/50 ML IVPB 20 MG/50 ML MG IVPB ONE (17:21)
== END 2025-05-13 19:42 | disposition home or self-care (01) ==
LOC: JER 12:34
PROC: 3E033NZ Introduction of Analgesics, Hypnotics, Sedatives into Peripheral Vein, Percutaneous Approach (ICD-10-PCS; principal; 2025-05-13)
PROC: 3E023NZ Introduction of Analgesics, Hypnotics, Sedatives into Muscle, Percutaneous Approach (ICD-10-PCS; 2025-05-13)
DX: K80.20 Calculus of gallbladder without cholecystitis without obstruction (principal); R10.12 Left upper quadrant pain; R10.11 Right upper quadrant pain; R10.13 Epigastric pain; R11.2 Nausea with vomiting, unspecified; R06.02 Shortness of breath; R60.0 Localized edema
CPT/HCPCS: 36415; 71045-TC-FY; 76705-TC; 80053; 83605; 83690; 83735; 83880; 84484; 85025; 93005; 93010; 96372; 96374; 99285-25; Q0162